=== PATIENT | male | born 1955 | race Caucasian/White ===

== ENCOUNTER 2017-01-24 14:01 | Emergency (ER) | payer OTHER ==
[2017-01-24 14:31] VITALS: RESP 18
[2017-01-24] MEDS ORDERED: ORPHENADRINE 30 MG/ML 2 ML VIAL IM STA (15:28)
[2017-01-24] MEDS ORDERED: KETOROLAC 30 MG/ML 1 ML VIAL IM STA (15:28)
--- NOTE | 2017-01-24 15:56 | XR ---
EXAMINATION TYPE: XR lumbar spine 2 or 3V DATE OF EXAM: 01/24/2017 3:35 PM COMPARISON: NONE HISTORY: Low back pain TECHNIQUE: 3 view lumbar spine FINDINGS: There 5 lumbar-type vertebral bodies. Pedicles are intact. Degenerative disc changes are pr esent L3-4 L4-5. Spondylosis is present. T12 ribs are rudimentary. A 1.0 cm calcification overlies in ferior pole left kidney. Posterior disc space narrowing is present L3-4 and mild diffuse disc space narrowing is present L2-3. Vertebral body heights are preserved. IMPRESSION: 1. Degenerative disc changes L3-4 L2-3. 2. Mild spondylosis.
--- NOTE | 2017-01-24 15:59 | ED ---
General Adult HPI - General Chief complaint: Back Pain/Injury Stated complaint: Back pain Time Seen by Provider: 01/24/17 15:11 Source: patient, RN notes reviewed Mode of arrival: ambulatory - History of Present Illness Initial comments: Patient is a 61-year-old to complaint of lower back pain for approximately one week. Patient reports that the pain is worse with walking and standing. He states that the pain doesn't radiate down his legs. He denies any radiation towards his abdomen. Patient reports that the pain will make him lean to one side. He states the pain is mainly over the left sided lower back however occasionally will go to the right. Patient states that he also has a history of high blood pressure but does not take any medications at this time she didn' t see primary care provider. Patient denies any chest pain or shortness of breath. Her port that he has chronic lower leg swelling with to take a water pill for. He reports that he is out of his medications. - Related Data Home Medications Medication Instructions Recorded Confirmed Aspirin 81 mg PO DAILY 10/02/14 01/24/17 Furosemide [Lasix] 40 mg PO DAILY 01/24/17 01/24/17 amLODIPine [Norvasc] 10 mg PO DAILY 01/24/17 01/24/17 Previous Rx's Medication Instructions Recorded Cyclobenzaprine [Flexeril] 10 mg PO TID #20 tab 01/24/17 Furosemide [Lasix] 40 mg PO DAILY #30 tablet 01/24/17 HYDROcodone/APAP 5-325MG [Hurley 1 tab PO Q6HR PRN #12 tab 01/24/17 5-325] amLODIPine [Norvasc] 10 mg PO DAILY #30 tablet 01/24/17 Allergies Allergy/AdvReac Type Severity Reaction Status Date / Time No Known Allergies Allergy Verified 01/24/17 15:45 Review of Systems ROS Statement: Those systems with pertinent positive or pertinent negative responses have been documented in the HPI. ROS Other: All systems not noted in ROS Statement are negative. Past Medical History Past Medical History: Hypertension History of Any Multi-Drug Resistant Organisms: None Reported Past Surgical History: Hernia Repair Past Psychological History: No Psychological Hx Reported Smoking Status: Never smoker Past Alcohol Use History: None Reported Past Drug Use History: None Reported General Exam - General Exam Comments Initial Comments: Pleasant 61-year-old male. No distress. General appearance: alert, in no apparent distress Head exam: Present: atraumatic, normocephalic, normal inspection Eye exam: Present: normal appearance, PERRL, EOMI. Absent: scleral icterus, conjunctival injection, periorbital swelling ENT exam: Present: normal exam, mucous membranes moist Neck exam: Present: normal inspection. Absent: tenderness, meningismus, lymphadenopathy Respiratory exam: Present: normal lung sounds bilaterally. Absent: respiratory distress, wheezes, rales, rhonchi, stridor Cardiovascular Exam: Present: regular rate, normal rhythm, normal heart sounds. Absent: systolic murmur, diastolic murmur, rubs, gallop, clicks GI/Abdominal exam: Present: soft, normal bowel sounds. Absent: distended, tenderness, guarding, rebound, rigid Extremities exam: Present: normal inspection, full ROM, normal capillary refill. Absent: tenderness, pedal edema, joint swelling, calf tenderness Back exam: Present: normal inspection, muscle spasm, paraspinal tenderness. Absent: full ROM (Patient has limited lumbar flexion and extension due to pain. Patient has muscle spasms over the left lumbar paraspinal area.), CVA tenderness (R), CVA tenderness (L), vertebral tenderness, rash noted Neurological exam: Present: alert, oriented X3, CN II-XII intact Psychiatric exam: Present: normal affect, normal mood Skin exam: Present: warm, dry, intact, normal color. Absent: rash Course Vital Signs 01/24/17 14:26 Temperature 98.6 F Pulse Rate 100 Respiratory 18 Rate Blood Pressure 173/106 O2 Sat by Pulse 96 Oximetry Medical Decision Making - Medical Decision Making Patient is a pleasant 61-year-old male with chief complaint of lower back pain for approximately one week. Patient also has a history of hypertension but is out of this medication. Patient reports he takes a water pill and other medications for this. Patient states the pain is worse with movement. Lumbar spine x-rays obtained. Patient given Toradol and Norflex. Patient will be given a refill for his blood pressure medications as well as Norflex and Hurley for pain. Discussed needs follow-up with a primary care provider in insurance packet was provided for the patient. Patient understands treatment plan will comply. Return parameters were discussed. Disposition Clinical Impression: Lower back pain, Hypertension Disposition: HOME SELF-CARE Condition: Good Instructions: Acute Low Back Pain (ED) Additional Instructions: Patient advised to rest, take blood pressure medication as prescribed. Follow- up with her primary care provider. Patient also instructed to take the pain medications as prescribed as well. Return to the emergency department if any alarming signs or symptoms occur. Prescriptions: Cyclobenzaprine [Flexeril] 10 mg PO TID #20 tab Furosemide [Lasix] 40 mg PO DAILY #30 tablet HYDROcodone/APAP 5-325MG [Hurley 5-325] 1 tab PO Q6HR PRN #12 tab PRN Reason: Pain amLODIPine [Norvasc] 10 mg PO DAILY #30 tablet Referrals: Dinorah Tavarez DO [Primary Care Provider] - 1-2 days Time of Disposition: 15:55
[2017-01-24 16:09] VITALS: BP 164/89; PULSE 94; TEMP 98.1
== END 2017-01-24 16:09 | disposition home or self-care (01) ==
LOC: EC 14:01
DX: M54.5 Low back pain (principal); I10 Essential (primary) hypertension; Z79.82 Long term (current) use of aspirin; Z79.899 Other long term (current) drug therapy
CPT/HCPCS: 99283; 96372 ×2; 72100; J2360; J1885

== ENCOUNTER 2017-08-09 10:38 | Day surgery (SDC) | payer OTHER ==
[2017-08-03 14:00] VITALS: BMI 40.4
[~2017-08-09 10:38] MED LIST: ALPRAZolam 0.25 MG TAB PO PRN; ALPRAZolam 0.5 MG TAB PO PRN; ASPIRIN 325 MG TAB PO STA; ATORVASTATIN 80 MG TAB PO STA; NITROGLYCERIN SL TABS 0.4 MG TAB SUBLINGUAL PRN; SODIUM CHLORIDE 0.9% 1,000 ML in EMPTY BAG 1 BAG IV ONE
[2017-08-09] MEDS ORDERED: SODIUM CHLORIDE 0.9% 1,000 ML IV ONE (11:27)
[2017-08-09 11:48] LABS: Glucose,Whole Blood 131 mg/dL (75-99)
[2017-08-09] MEDS ORDERED: MIDAZOLAM 2 MG/2 ML VIAL IV ONE (12:00)
[2017-08-09] MEDS ORDERED: fentaNYL (PF) 50 MCG/ML 2 ML AMP IV ONE (12:00)
[2017-08-09] MEDS ORDERED: MIDAZOLAM 2 MG/2 ML VIAL ONE (12:02)
[2017-08-09] MEDS ORDERED: fentaNYL (PF) 50 MCG/ML 2 ML AMP ONE (12:03)
[2017-08-09] MEDS ORDERED: LIDOCAINE 2% INJ 20 MG/ML SQ ONE (12:05)
[2017-08-09] MEDS ORDERED: IOHEXOL 350 MG/ML 125ML BOTTLE INJ ONE (12:24)
[2017-08-09] MEDS ORDERED: RX INFO: IV CONTRAST WAS GIVEN 1 EACH MISC MISCELLANE PRN (13:04)
[2017-08-09] MEDS ORDERED: HYDROcodone/APAP 5-325MG 1 EACH TAB PO PRN (13:04)
[2017-08-09] MEDS ORDERED: SODIUM CHLORIDE 0.9% 1,000 ML IV SCH (13:15)
--- NOTE | 2017-08-09 14:10 | CC ---
CARDIAC CATHETERIZATION REPORT Mr. Matias is a 62-year-old gentleman who was evaluated by Dr. Gaming. Patient has a multiple risk factors with chest pain. The patient's stress test was inconclusive to diagnosis ischemia. In view of recurrent chest pain in spite of the medical treatment, the patient was advised diagnostic cardiac catheterization to rule out significant coronary artery disease. PROCEDURE: The right groin was prepped and draped in the usual manner and the skin was infiltrated with 2% Xylocaine. The right femoral artery was entered using Seldinger technique and a #6-Bulgarian sheath was placed in. Selective coronary angiography was then performed in multiple projections and the left ventricular pressures were obtained. Patient tolerated the procedure well. Sheath was removed and good hemostasis was achieved with manual compression. Total sedation time was 20 minutes. HEMODYNAMICS: Left ventricular end-diastolic pressure is 24-26 mmHg prior to angiography. No gradient is noted across the aortic valve. SELECTIVE CORONARY ANGIOGRAPHY: Left main coronary artery is normal and patent. LAD is a good caliber blood vessel and gives rise to a good-sized diagonal branch. LAD and its branches are normal. Circumflex coronary artery is a good caliber blood vessel and gives rise to a good size obtuse marginal branch and the PLV branches. Circumflex coronary artery and its branches are normal. Right coronary artery is a normal caliber blood vessel, and gives rise to a small size PDA and a good size PLV branch. The right coronary artery and its branches are normal. FINAL IMPRESSION: This study reveals normal coronary arteries. Left ventricular end-diastolic pressure is elevated. RECOMMENDATIONS: Maximum medical therapy and risk factor modification. MMODL / IJN: [id number] /
[2017-08-09] MEDS ORDERED: ACETAMINOPHEN TAB 325 MG TAB PO PRN (18:17)
[2017-08-09 19:34] VITALS: PULSE 83; RESP 16; TEMP 97.9
[2017-08-09 19:36] VITALS: BP 121/69
== END 2017-08-09 20:03 | disposition home or self-care (01) ==
LOC: CATHCVL 10:38 → 3OBS 12:22 → CATHCVL 20:03
PROVIDERS: ATTEND Internal Medicine Cardiovascular Disease
DX: R07.89 Other chest pain (principal); R06.02 Shortness of breath; I10 Essential (primary) hypertension; E78.89 Other lipoprotein metabolism disorders; E11.9 Type 2 diabetes mellitus without complications; E78.5 Hyperlipidemia, unspecified; Z79.84 Long term (current) use of oral hypoglycemic drugs; Z79.899 Other long term (current) drug therapy; Z82.49 Family history of ischemic heart disease and other diseases of the circulatory system
CPT/HCPCS: 93458; C1894; C1769; J2001; J2250; J3010; Q9967

== ENCOUNTER 2017-10-20 16:30 | Emergency (ER) | payer OTHER ==
[2017-10-20 16:56] VITALS: BP 161/83; PULSE 92; TEMP 98.7
--- NOTE | 2017-10-20 17:17 | ED ---
General Adult HPI - General Chief complaint: Upper Respiratory Infection Stated complaint: Chest Congestion Time Seen by Provider: 10/20/17 17:12 Source: patient, RN notes reviewed Mode of arrival: ambulatory Limitations: no limitations - History of Present Illness Initial comments: patient is a 62-year-old male who presents emergency room today with a chief complaint of cough congestion over the last week. Patient does admit to some sputum production. He states worse in the morning and at night. Patient does admit that it started with sinus infection approximately week ago. States feels like it moved down into his chest. He denies any other complaints or symptoms. Patient denies any recent fever, chills, shortness of breath, chest pain, back pain, abdominal pain, nausea or vomiting, numbness or tingling, headaches or visual changes, or any other complaints. - Related Data Home Medications Medication Instructions Recorded Confirmed Aspirin 162 mg PO DAILY 10/02/14 08/09/17 Atorvastatin [Lipitor] 40 mg PO DAILY 08/03/17 08/09/17 Levothyroxine Sodium [Levoxyl] 50 mcg PO DAILY 08/03/17 08/09/17 Losartan Potassium 100 mg PO DAILY 08/03/17 08/09/17 Triamterene/Hydrochlorothiazid 1 each PO DAILY 08/03/17 08/09/17 [Triamterene-Hctz 37.5-25 mg Tb] amLODIPine BESYLATE [Norvasc] 10 mg PO DAILY 08/03/17 08/09/17 metFORMIN HCL [Glucophage] 500 mg PO BID 08/03/17 08/09/17 Metoprolol Tartrate [Lopressor] 25 mg PO BID 08/09/17 08/09/17 Previous Rx's Medication Instructions Recorded Azithromycin [Zithromax Z-pack] 0 mg PO DIRECTED #6 tab 10/20/17 Allergies Allergy/AdvReac Type Severity Reaction Status Date / Time No Known Allergies Allergy Verified 10/20/17 16:56 Review of Systems ROS Statement: Those systems with pertinent positive or pertinent negative responses have been documented in the HPI. ROS Other: All systems not noted in ROS Statement are negative. Past Medical History Past Medical History: Chest Pain / Angina, Hyperlipidemia, Hypertension, Sleep Apnea/CPAP/BIPAP, Thyroid Disorder Additional Past Medical History / Comment(s): pt states prediabetic, is awaiting machine for sleep apnea History of Any Multi-Drug Resistant Organisms: None Reported Past Surgical History: Hernia Repair Additional Past Surgical History / Comment(s): surgery for umbilical and inguinal hernia, left pinky surgery, surgery for "swollen testicle" Past Anesthesia/Blood Transfusion Reactions: No Reported Reaction Past Psychological History: Anxiety Smoking Status: Never smoker Past Alcohol Use History: None Reported Past Drug Use History: None Reported - Past Family History Mother Family Medical History: Cancer Additional Family Medical History / Comment(s): "throat cancer" Father Family Medical History: Myocardial Infarction ([place]) Additional Family Medical History / Comment(s): age 66 " of massive heart attack" Brother(s) Family Medical History: Myocardial Infarction ([place]) Sister(s) Family Medical History: Cancer, Myocardial Infarction ([place]) Additional Family Medical History / Comment(s): "throat cancer" General Exam - General Exam Comments Initial Comments: General: The patient is awake and alert, in no distress, and does not appear acutely ill. Eye: Pupils are equal, round and reactive to light, extra-ocular movements are intact. No nystagmus. There is normal conjunctiva bilaterally. No signs of icterus. Ears, nose, mouth and throat: There are moist mucous membranes and no oral lesions. Neck: The neck is supple, there is no tenderness or JVD. Cardiovascular: There is a regular rate and rhythm. No murmur, rub or gallop is appreciated. Respiratory: Lungs are clear to auscultation, respirations are non-labored, breath sounds are equal. No wheezes, stridor, rales, or rhonchi. Musculoskeletal: Normal ROM, no tenderness. Strength 5/5. Sensation intact. Pulses equal bilaterally 2+. Neurological: A&O x 3. CN II-XII intact, There are no obvious motor or sensory deficits. Coordination appears grossly intact. Speech is normal. Skin: Skin is warm and dry and no rashes or lesions are noted. Psychiatric: Cooperative, appropriate mood & affect, normal judgment. Limitations: no limitations Course Vital Signs 10/20/17 16:53 Temperature 98.7 F Pulse Rate 92 Respiratory 17 Rate Blood Pressure 161/83 O2 Sat by Pulse 98 Oximetry Medical Decision Making - Medical Decision Making patient's x-ray reviewed and is negative for any sign of pneumonia. Patient will be treated for bronchitis placed on a Z-Anatoly advised follow-up family doctor over the next 2 days. Advised return symptoms increase worsen. Disposition Clinical Impression: Acute bronchitis Disposition: HOME SELF-CARE Condition: Good Instructions: Acute Bronchitis (ED) Additional Instructions: Please use medication as discussed. Please follow-up with family doctor in the next 2 days of symptoms have not improved. Please return to emergency room if the symptoms increase or worsen or for any other concerns. Prescriptions: Azithromycin [Zithromax Z-pack] 0 mg PO DIRECTED #6 tab Referrals: Dinorah Tavarez DO [Primary Care Provider] - 1-2 days Time of Disposition: 17:50
--- NOTE | 2017-10-20 17:37 | XR ---
EXAMINATION TYPE: XR chest 2V DATE OF EXAM: 10/20/2017 COMPARISON: 07/25/2012 HISTORY: Cough and congestion TECHNIQUE: Frontal and lateral views of the chest are obtained. FINDINGS: Heart and mediastinum are normal. Lungs are clear. Costophrenic angles are clear. There is mild spurring in the thoracic spine. IMPRESSION: No active cardiopulmonary disease. No change.
[2017-10-20 18:07] VITALS: RESP 16
== END 2017-10-20 18:06 | disposition home or self-care (01) ==
LOC: EC 16:30
DX: J20.9 Acute bronchitis, unspecified (principal); E78.5 Hyperlipidemia, unspecified; I10 Essential (primary) hypertension; E07.9 Disorder of thyroid, unspecified; G47.30 Sleep apnea, unspecified; Z99.89 Dependence on other enabling machines and devices; F41.9 Anxiety disorder, unspecified; Z79.82 Long term (current) use of aspirin; Z79.84 Long term (current) use of oral hypoglycemic drugs; Z79.899 Other long term (current) drug therapy
CPT/HCPCS: 71046; 99283

== ENCOUNTER 2020-03-22 16:17 | Inpatient (IN) | payer MEDICARE, OTHER ==
--- NOTE | 2020-03-22 16:30 | ED ---
Neck Injury/Pain HPI - General Chief Complaint: Neck Pain/Injury Stated Complaint: chest pain Time Seen by Provider: 03/22/20 16:29 Mode of arrival: wheelchair Limitations: no limitations - History of Present Illness Initial Comments: Patient is a 64-year-old male with history of diabetes, hyperlipidemia, hypertension presenting to the emergency department with a chief complaint of neck pain and chest tightness. States about 2 days ago he felt some crepitus- like symptoms in his neck. States he went to the chiropractor who adjusted his neck but his symptoms did not resolve. States the following day he went to his primary care for complaining of right-sided neck pain that feels like a pressure in the neck. States his primary care gave him an order for a carotid ultrasound with the potential CT follow-up. Patient states today in the morning he has noticed some chest tightness with a slight shortness of breath on exertion. States it lasted for about 5-10 minutes and resolved. States she went to do some work in the yard and the symptoms returned again. States the symptoms since resolved. States she has not taken any of his morning medications. States he has a strong family history of early cardiac related disease. Denies one-sided weakness or paresthesias. Denies visual disturbances. - Related Data Home Medications Medication Instructions Recorded Confirmed Aspirin 81 mg PO DAILY 10/02/14 01/27/18 Atorvastatin [Lipitor] 40 mg PO DAILY 08/03/17 01/27/18 Losartan Potassium 100 mg PO DAILY 08/03/17 01/27/18 Triamterene/Hydrochlorothiazid 1 tab PO DAILY 08/03/17 01/27/18 [Triamterene-Hctz 37.5-25 mg Tb] amLODIPine BESYLATE [Norvasc] 10 mg PO DAILY 08/03/17 01/27/18 metFORMIN HCL [Glucophage] 500 mg PO BID 08/03/17 01/27/18 Levothyroxine Sodium [Synthroid] 75 mcg PO DAILY 01/27/18 01/27/18 Metoprolol Succinate [Toprol Xl] 50 mg PO DAILY 01/27/18 01/27/18 Previous Rx's Medication Instructions Recorded Ibuprofen [Motrin] 600 mg PO Q8HR PRN #24 tab 01/27/18 Levofloxacin [Levaquin] 500 mg PO DAILY #7 tab 01/27/18 Tamsulosin [Flomax] 0.4 mg PO DAILY #30 cap 01/27/18 Allergies Allergy/AdvReac Type Severity Reaction Status Date / Time No Known Allergies Allergy Verified 03/22/20 16:28 Review of Systems ROS Statement: Those systems with pertinent positive or pertinent negative responses have been documented in the HPI. ROS Other: All systems not noted in ROS Statement are negative. Past Medical History Past Medical History: Chest Pain / Angina, Hyperlipidemia, Hypertension, Sleep Apnea/CPAP/BIPAP, Thyroid Disorder Additional Past Medical History / Comment(s): pt states prediabetic, is awaiting machine for sleep apnea History of Any Multi-Drug Resistant Organisms: None Reported Past Surgical History: Hernia Repair Additional Past Surgical History / Comment(s): surgery for umbilical and inguinal hernia, left pinky surgery, surgery for "swollen testicle" Past Anesthesia/Blood Transfusion Reactions: No Reported Reaction Past Psychological History: Anxiety Smoking Status: Never smoker Past Alcohol Use History: None Reported Past Drug Use History: None Reported - Past Family History Mother Family Medical History: Cancer Additional Family Medical History / Comment(s): "throat cancer" Father Family Medical History: Myocardial Infarction ([place]) Additional Family Medical History / Comment(s): age 66 " of massive heart attack" Brother(s) Family Medical History: Myocardial Infarction ([place]) Sister(s) Family Medical History: Cancer, Myocardial Infarction ([place]) Additional Family Medical History / Comment(s): "throat cancer" General Exam Limitations: no limitations General appearance: alert, in no apparent distress, obese Head exam: Present: atraumatic, normocephalic, normal inspection Eye exam: Present: normal appearance, PERRL, EOMI Pupils: Present: normal accommodation ENT exam: Present: normal exam, normal oropharynx, mucous membranes moist, TM's normal bilaterally (No signs of otitis media.), normal external ear exam Neck exam: Present: normal inspection, tenderness (No midcervical tenderness. Crepitus noted with left and right rotation. Tenderness along the right trapezius.), full ROM. Absent: lymphadenopathy Respiratory exam: Present: normal lung sounds bilaterally. Absent: respiratory distress, wheezes Cardiovascular Exam: Present: regular rate, normal rhythm, normal heart sounds Extremities exam: Present: normal inspection, full ROM Back exam: Present: normal inspection, full ROM Neurological exam: Present: alert, oriented X3 Psychiatric exam: Present: normal affect, normal mood Skin exam: Present: warm, dry, intact, normal color Course Vital Signs 03/22/20 16:22 Temperature 98.3 F Pulse Rate 105 H Respiratory 18 Rate Blood Pressure 173/95 O2 Sat by Pulse 99 Oximetry Medical Decision Making - Medical Decision Making Patient is 64-year-old male with history of hypertension, hypercholesterolemia, diabetes presenting to the emergency department with a chief complaint of neck pain and chest pressure. On exam she does appear to have limited range of motion with left or right rotation due to pain on the right side of the neck. No signs of mastoiditis. Ear examination is unremarkable. Patient is scheduled to have a carotid ultrasound over the next few days. Doesn't have any headaches at this time. EKG shows sinus rhythm with no ST or T-wave changes. Patient was given aspirin and nitro in the ED. Chest x-ray was unremarkable. Initial troponins are negative. Patient did not take his morning medication. Patient has a heart score 5. Patient will be admitted for observation. Case discussed with . Admitting physician is . Cardiology on consult - Lab Data Result diagrams: 03/22/20 15:03 03/22/20 15:03 Lab Results 03/22/20 03/22/20 03/22/20 Range/Units 15:03 15:03 15:03 WBC 10.5 (3.8-10.6) k/uL RBC 5.14 (4.30-5.90) m/uL Hgb 14.8 (13.0-17.5) gm/dL Hct 45.3 (39.0-53.0) % MCV 88.1 (80.0-100.0) fL MCH 28.8 (25.0-35.0) pg MCHC 32.7 (31.0-37.0) g/dL RDW 14.0 (11.5-15.5) % Plt Count 288 (150-450) k/uL Neutrophils % 81 % Lymphocytes % 14 % Monocytes % 4 % Eosinophils % 0 % Basophils % 1 % Neutrophils # 8.4 H (1.3-7.7) k/uL Lymphocytes # 1.4 (1.0-4.8) k/uL Monocytes # 0.4 (0-1.0) k/uL Eosinophils # 0.0 (0-0.7) k/uL Basophils # 0.1 (0-0.2) k/uL PT 10.0 (9.0-12.0) sec INR 1.0 (<1.2) APTT 23.6 (22.0-30.0) sec Sodium 136 L (137-145) mmol/L Potassium 4.6 (3.5-5.1) mmol/L Chloride 101 (98-107) mmol/L Carbon Dioxide 25 (22-30) mmol/L Anion Gap 10 mmol/L BUN 18 (9-20) mg/dL Creatinine 0.91 (0.66-1.25) mg/dL Est GFR (CKD-EPI)AfAm >90 (>60 ml/min/1.73 sqM) Est GFR (CKD-EPI)NonAf 89 (>60 ml/min/1.73 sqM) Glucose 230 H (74-99) mg/dL Calcium 9.9 (8.4-10.2) mg/dL Magnesium 1.9 (1.6-2.3) mg/dL Total Bilirubin 0.8 (0.2-1.3) mg/dL AST 41 (17-59) U/L ALT 68 H (4-49) U/L Alkaline Phosphatase 140 H (38-126) U/L Troponin I (0.000-0.034) ng/mL Total Protein 7.3 (6.3-8.2) g/dL Albumin 4.4 (3.5-5.0) g/dL 03/22/20 Range/Units 15:03 WBC (3.8-10.6) k/uL RBC (4.30-5.90) m/uL Hgb (13.0-17.5) gm/dL Hct (39.0-53.0) % MCV (80.0-100.0) fL MCH (25.0-35.0) pg MCHC (31.0-37.0) g/dL RDW (11.5-15.5) % Plt Count (150-450) k/uL Neutrophils % % Lymphocytes % % Monocytes % % Eosinophils % % Basophils % % Neutrophils # (1.3-7.7) k/uL Lymphocytes # (1.0-4.8) k/uL Monocytes # (0-1.0) k/uL Eosinophils # (0-0.7) k/uL Basophils # (0-0.2) k/uL PT (9.0-12.0) sec INR (<1.2) APTT (22.0-30.0) sec Sodium (137-145) mmol/L Potassium (3.5-5.1) mmol/L Chloride (98-107) mmol/L Carbon Dioxide (22-30) mmol/L Anion Gap mmol/L BUN (9-20) mg/dL Creatinine (0.66-1.25) mg/dL Est GFR (CKD-EPI)AfAm (>60 ml/min/1.73 sqM) Est GFR (CKD-EPI)NonAf (>60 ml/min/1.73 sqM) Glucose (74-99) mg/dL Calcium (8.4-10.2) mg/dL Magnesium (1.6-2.3) mg/dL Total Bilirubin (0.2-1.3) mg/dL AST (17-59) U/L ALT (4-49) U/L Alkaline Phosphatase (38-126) U/L Troponin I <0.012 (0.000-0.034) ng/mL Total Protein (6.3-8.2) g/dL Albumin (3.5-5.0) g/dL - EKG Data EKG Comments: Sinus rhythm, no ST or T-wave changes. Next, ventricular rate 98, MO 156, QRS 92, QTC 434. Disposition Clinical Impression: Neck pain on right side, Chest pressure Disposition: ADMITTED IP TO THIS HOSP Condition: Stable Additional Instructions: Patient will be admitted Is patient prescribed a controlled substance at d/c from ED?: No Referrals: Dinorah aTvarez DO [Primary Care Provider] - 1-2 days Time of Disposition: 18:33
[2020-03-22] MEDS ORDERED: NITROGLYCERIN OINT 1 INCH/GM PACKET TOPICAL STA (16:48)
[2020-03-22] MEDS ORDERED: ASPIRIN 81 MG PO STA (16:48)
[2020-03-22 17:28] LABS: Basophils # (A) 0.1 k/uL (0-0.2); Basophils % (A) 1 %; Eosinophils % (A) 0 %; HCT 45.3 % (39.0-53.0); HGB 14.8 gm/dL (13.0-17.5); Lymphocytes # (A) 1.4 k/uL (1.0-4.8); Lymphocytes % (A) 14 %; MCH 28.8 pg (25.0-35.0); MCHC 32.7 g/dL (31.0-37.0); MCV 88.1 fL (80.0-100.0); Mean Platelet Volume 6.7; Monocytes # (A) 0.4 k/uL (0-1.0); Monocytes % (A) 4 %; Neutrophils # (A) 8.4 k/uL (1.3-7.7); Neutrophils % (A) 81 %; Platelet Count 288 k/uL (150-450); RBC 5.14 m/uL (4.30-5.90); WBC 10.5 k/uL (3.8-10.6)
--- NOTE | 2020-03-22 17:44 | XR ---
EXAMINATION TYPE: XR chest 2V DATE OF EXAM: 03/22/2020 COMPARISON: 10/20/2017 HISTORY: Cough and congestion TECHNIQUE: 2 views FINDINGS: Heart is normal. Lungs are clear of infiltrate. There is no heart failure. There are chest leads. Costophrenic angles are clear. IMPRESSION: No active cardiopulmonary disease. Normal heart. No change.
[2020-03-22 17:45] LABS: ALT 68 U/L (4-49); AST 41 U/L (17-59); African American GFR (CKD) >90 (>60 ml/min/1.73 sqM); Albumin 4.4 g/dL (3.5-5.0); Alkaline Phosphatase 140 U/L (38-126); Anion Gap 10 mmol/L; Blood Urea Nitrogen 18 mg/dL (9-20); Calcium 9.9 mg/dL (8.4-10.2); Carbon Dioxide 25 mmol/L (22-30); Chloride 101 mmol/L (98-107); Glucose 230 mg/dL (74-99); Magnesium 1.9 mg/dL (1.6-2.3); Non-African American GFR(CKD) 89 (>60 ml/min/1.73 sqM); Potassium 4.6 mmol/L (3.5-5.1); Sodium 136 mmol/L (137-145); Total Bilirubin 0.8 mg/dL (0.2-1.3); Total Protein 7.3 g/dL (6.3-8.2)
[2020-03-22 17:49] LABS: Partial Thromboplastin Time 23.6 sec (22.0-30.0)
[2020-03-22] MEDS ORDERED: NITROGLYCERIN SL TABS 0.4 MG TAB SUBLINGUAL PRN (18:25)
[2020-03-22] MEDS ORDERED: HYDROcodone/APAP 5-325MG 1 EACH TAB PO PRN (21:30)
[2020-03-22] MEDS ORDERED: TEMAZEPAM 15 MG CAP PO PRN (21:30)
[2020-03-22] MEDS ORDERED: ALPRAZolam 0.25 MG TAB PO PRN (21:30)
--- NOTE | 2020-03-22 22:10 | US ---
EXAMINATION TYPE: US carotid duplex BILAT DATE OF EXAM: 03/22/2020 COMPARISON: NONE CLINICAL HISTORY: tia. EXAM MEASUREMENTS: RIGHT: Peak Systolic Velocity (PSV) cm/sec ----- Right CCA: 86.7 ----- Right ICA: 91.1 ----- Right ECA: 75.7 ICA/CCA ratio: 1.1 RIGHT: End Diastole cm/sec ----- Right CCA: 16.4 ----- Right ICA: 34.0 ----- Right ECA: 5.4 LEFT: Peak Systolic Velocity (PSV) cm/sec ----- Left CCA: 81.3 ----- Left ICA: 83.5 ----- Left ECA: 103.4 ICA/CCA ratio: 1.0 LEFT: End Diastole cm/sec ----- Left CCA: 17.5 ----- Left ICA: 18.6 ----- Left ECA: 7.6 VERTEBRALS (direction of flow): Right Vertebral: Antegrade Left Vertebral: Antegrade Rhythm: Normal No significant stenosis seen. No elevated velocities. Minimal plaque noted. IMPRESSION: There is antegrade flow in the vertebral arteries. The images and measurements suggest close to 50% s tenosis in the distal left internal carotid artery with fusiform narrowing. There is less than 15% na rrowing of the right internal carotid artery. Criteria for Assigning % of Stenosis / Diameter reduction (Estimation based on the indirect measurements of the internal carotid artery velocities (ICA PSV). 1. Normal (no stenosis)=ICA PSV < 125 cm/s: ratio < 2.0: ICA EDV<40 cm/s. 2. Less than 50% stenosis=ICA PSV < 125 cm/s: ratio < 2.0: ICA EDV<40 cm/s. 3. 50 to 69% stenosis=ICA PSV of 125 to 230 cm/s: ration 2.0 ? 4.0: ICA EDV 40-100 cm/s. 4. Greater than 70% stenosis to near occlusion= ICA PSV > 230 cm/s: ratio > 4.0: ICA EDV > 100 cm/s. 5. Near occlusion= ICA PSV velocities may be low or undetectable: variable ratio and ICA EDV. 6. Total occlusion=unable to detect flow.
--- NOTE | 2020-03-22 22:27 | CT ---
EXAMINATION TYPE: CT brain cspine wo con DATE OF EXAM: 03/22/2020 COMPARISON: HISTORY: Right sided head and neck pain. CT DLP: 1649.8 mGycm Automated exposure control for dose reduction was used. Ventricles have normal size. There is no mass effect nor midline shift. There is no sign of intracran ial hemorrhage. There is mild cerebral atrophy. Calvarium is intact. The skull base is intact. Cervical vertebra have normal spacing and alignment. There is anterior mild spurring at C5-6. Facet j oints are intact. I see no bony destructive process. Temporal bones appear normal. IMPRESSION: Negative CT scan cervical spine. Negative CT scan of the brain.
--- NOTE | 2020-03-22 23:39 | HP ---
HISTORY AND PHYSICAL DATE OF SERVICE: 03/22/2020 CHIEF COMPLAINT: Chest pain as well as neck pain. HISTORY OF PRESENT ILLNESS: This 64-year-old gentleman with a past medical history of multiple medical problems including chest pain, history of hypertension, hyperlipidemia, sleep apnea, history of hernia repair being followed by Dr. Dinorah Tavarez, has been having some neck pain initially the early part of the week and the patient went to a chiropractor where neck manipulation was done and during the manipulation, patient felt sharp shooting pain and a crack on the right side of the neck. The patient went home but subsequently patient was not noted to have a burning sensation and pain in the right side of the jaw and right side of the face and subsequently the pain was also radiating upwards to the vertex also. However, the next day the patient developed chest pain which was heavy in character, squeezing in character and the patient came to [facility] and was admitted for evaluation and treatment. Initial troponins are negative. There is no history any fever or rigors. No headache, loss of consciousness, seizures at this time. The patient is not feeling well with some slight dizziness and other symptoms according to him for the last couple of days. PAST MEDICAL HISTORY: History of hypertension, hyperlipidemia, sleep apnea, hernia repair. MEDICATIONS: 1. Metformin. 2. Glucophage XR 500 mg p.o. b.i.d. 3. Norvasc 10 mg p.o. daily. 4. Triamterene hydrochlorothiazide 1 tablet p.o. daily. 5. Toprol-XL 50 mg p.o. daily. 6. Losartan 100 mg p.o. daily. 7. Synthroid 75 mcg p.o. daily. 8. Lipitor 40 mg p.o. daily. 9. Aspirin 81 mg p.o. daily. ALLERGIES: None. FAMILY HISTORY: History of throat cancer in the family. SOCIAL HISTORY: No history of smoking. No history of alcohol intake. REVIEW OF SYSTEMS: ENT No history of diminished hearing or vision. CARDIOVASCULAR As mentioned earlier. RESPIRATORY As mentioned earlier. GI No nausea, vomiting, or diarrhea. No dysuria or hematuria. NERVOUS No numbness or weakness. ALLERGY/IMMUNOLOGY No asthma or hayfever. MUSCULOSKELETAL As mentioned earlier. HEMATOLOGY/ONCOLOGY Negative. ENDOCRINE As mentioned earlier. CONSTITUTIONAL As mentioned earlier. DERMATOLOGY Negative. RHEUMATOLOGY Negative, PSYCHIATRY As mentioned earlier. PHYSICAL EXAM: Patient is alert, oriented x3. Pulse 90, blood pressure 120/80, respiration 20, temperature 97.9, pulse ox 96% on room air HEENT: Conjunctivae normal. Oral mucosa moist. NECK: No jugular venous distention. No lymph node enlargement. CARDIOVASCULAR: S1, S2. RESPIRATORY: Diminished breath sounds at the bases. No rhonchi, no crackles. ABDOMEN: Soft, nontender. No mass palpable. LEGS: No edema, no swelling. NERVOUS SYSTEM: Higher functions mentioned earlier. Moves all four limbs. No focal motor or sensory deficits. No signs of cerebellar dysfunction. Gait is normal. LYMPHATICS: No lymph node in neck or axilla. SKIN: No rash. JOINTS: No active deforming arthropathy. LABS: CBC within normal limits. Sodium 130, potassium 4.6, glucose 230, and ALT 16. Alkaline phosphatase 140. ASSESSMENT: 1. Chest pain, possible unstable angina. Rule out myocardial infarction. 2. Right-sided jaw pain, possible cervical degenerative joint disease. 3. Hyponatremia. 4. Increased ALT and alkaline phosphatase. 5. Hypertension. 6. Hyperlipidemia. 7. Sleep apnea. 8. Hypothyroidism. 9. Pre diabetes. 10.History of sleep apnea. 11.History of hernia repair. 12.Anxiety. RECOMMENDATIONS AND DISCUSSION: In this 64-year-old gentleman who presented with multiple complex medical issues, we will monitor the patient closely, continue the current management and symptomatic treatment. I would recommend further troponin testing to rule out myocardial infarction, unstable angina protocol, Cardiology consultation and I would also recommend neurological workup including carotid ultrasound and 2D echo as well. We will continue to monitor. I would also recommend cervical spine x-ray and CT scan of the brain and cervical spine also to complete the workup. Otherwise, overall prognosis guarded because of multiple complex medical issues. Further recommendations to follow. MMODL / IJN: [id number] /
[2020-03-23 03:11] LABS: Basophils # (A) 0.1 k/uL (0-0.2); Basophils % (A) 1 %; Eosinophils # (A) 0.1 k/uL (0-0.7); Eosinophils % (A) 1 %; HCT 41.9 % (39.0-53.0); HGB 14.3 gm/dL (13.0-17.5); Lymphocytes # (A) 2.4 k/uL (1.0-4.8); Lymphocytes % (A) 26 %; MCH 30.5 pg (25.0-35.0); MCV 89.6 fL (80.0-100.0); Mean Platelet Volume 6.8; Monocytes # (A) 0.4 k/uL (0-1.0); Monocytes % (A) 5 %; Neutrophils % (A) 66 %; Platelet Count 246 k/uL (150-450); RBC 4.68 m/uL (4.30-5.90); RDW 14.6 % (11.5-15.5); WBC 9.1 k/uL (3.8-10.6)
[2020-03-23 03:18] LABS: ALT 58 U/L (4-49); AST 33 U/L (17-59); African American GFR (CKD) >90 (>60 ml/min/1.73 sqM); Albumin 3.8 g/dL (3.5-5.0); Alkaline Phosphatase 102 U/L (38-126); Anion Gap 8 mmol/L; Blood Urea Nitrogen 20 mg/dL (9-20); Calcium 9.2 mg/dL (8.4-10.2); Carbon Dioxide 24 mmol/L (22-30); Chloride 103 mmol/L (98-107); Cholesterol 170 mg/dL (<200); Glucose 198 mg/dL (74-99); HDL Cholesterol 37 mg/dL (40-60); LDL Cholesterol,Calculated 93 mg/dL (0-99); Non-African American GFR(CKD) >90 (>60 ml/min/1.73 sqM); Potassium 4.2 mmol/L (3.5-5.1); Sodium 135 mmol/L (137-145); Total Bilirubin 0.6 mg/dL (0.2-1.3); Total Protein 6.5 g/dL (6.3-8.2); Triglycerides 202 mg/dL (<150)
[2020-03-23 04:37] LABS: Glucose,Whole Blood 192 mg/dL (75-99)
[2020-03-23] MEDS: LEVOTHYROXINE 75 MCG TAB PO SCH (06:03)
[2020-03-23] MEDS ORDERED: ASPIRIN 325 MG TAB PO SCH (09:00)
[2020-03-23] MEDS ORDERED: METOPROLOL SUCCINATE (ER) 50 MG TAB.ER.24H PO SCH (09:00)
[2020-03-23] MEDS: INSULIN ASPART (NovoLOG) 100 UNIT/ML VIAL SQ SCH ×4 (09:18→19:41)
[2020-03-23] MEDS: ATORVASTATIN 40 MG TAB PO SCH (09:26)
[2020-03-23] MEDS: PANTOPRAZOLE 40 MG TABLET PO SCH (09:26)
[2020-03-23] MEDS: amLODIPine 10 MG TAB PO SCH (09:26)
[2020-03-23] MEDS: metFORMIN 500 MG TAB PO SCH ×2 (09:26→19:30)
[2020-03-23] MEDS: LOSARTAN 50 MG TAB PO SCH (09:26)
[2020-03-23] MEDS: TRIAMTERENE-HCTZ 37.5-25MG 1 EACH TAB PO SCH (09:27)
--- NOTE | 2020-03-23 09:49 | P.CRDCN ---
History of Present Illness Consult date: 03/23/20 Consult reason: chest pain History of present illness: The patient is a 64-year-old male with past medical history of GERD, hypothyroidism, obesity, sleep apnea, hypertension, hyperlipidemia, and diabetes mellitus, who presented to the hospital for new onset of chest discomfort. The patient states he was experiencing neck pain last week and subsequently went to the chiropractor. His neck was manipulated, which caused him to have dizziness and nausea. Over the next 2 days he had continued neck discomfort which radiated down into his clavicle area. Tuesday morning he was relatively pain- free, when he went outside to plant mayen with his . During that time he developed a heaviness in his chest. He states it was a pressure-like sensation, which did affect his breathing. He states "I felt like a couldn't get enough air." He does have a significant family history of coronary artery disease where his father in his mid 60s and he had a brother pass away in his sleep around the same age. He also has another brother who has multiple coronary stents. EKG shows sinus mechanism without acute ST or T-wave changes. Cardiac enzymes negative 3. Chest x-ray negative for acute cardiopulmonary disease. PAST MEDICAL HISTORY: Hypothyroidism, GERD,obesity, sleep apnea, hypertension, hyperlipidemia, diabetes mellitus, hernia repair REVIEW OF SYSTEMS: No fever or chills. No cough or expectoration. No diaphoresis. Patient denies headache, dizziness, blurred vision, double vision. Patient denies any stomach discomfort. No nausea, vomiting. No hematochezia. No hematemesis. Denies any black stools or blood in his stools. Denies dysuria or hematuria. No muscle weakness or numbness. No current chest discomfort. Positive neck pain. PHYSICAL EXAMINATION: This is a 64-year-old obese male in no apparent distress at the time of my examination. HEENT: Head is atraumatic, normocephalic. Pupils are equal, round. Sclerae anicteric. Conjunctivae are clear. Mucous membranes of the mouth are moist. Neck is supple. There is no jugular venous distention. No carotid bruit is heard. CHEST EXAMINATION: Lungs are clear to auscultation. No chest wall tenderness is noted on palpation or with deep breathing. HEART EXAMINATION: Heart regular rate and rhythm. S1, S2 heard. No murmurs, gallops or rub. ABDOMEN: Soft, nontender. Bowel sounds are heard. No organomegaly noted. EXTREMITIES: 2+ peripheral pulses with no evidence of peripheral edema and no calf tenderness noted. NEUROLOGIC EXAMINATION: Patient is awake, alert and oriented x3. EKG: Sinus mechanism without ST or T wave changes LABORATORY DATA: WBC 9.1, hemoglobin 14.3, hematocrit 41.9, sodium 135, potassiu m 4.2, BUN 20, creatinine 0.82, glucose 198, AST 33, ALT 58, triglycerides 202, LDL 93, HDL 37, troponins less than 0.0123 FINAL ASSESSMENT AND PLAN: #1 chest discomfort #2 hypertension, reasonably well controlled #3 dyslipidemia, on statin therapy #4 diabetes mellitus #5 obesity #6 VAN, which is untreated #7 family history of coronary artery disease PLAN: We will continue the patient's current medication regimen. Patient will undergo dobutamine stress echocardiogram with contrast in the morning. The patient may be discharged for outpatient follow-up and risk factor modification if the testing is within normal limits. Past Medical History Past Medical History: Chest Pain / Angina, Hyperlipidemia, Hypertension, Sleep Apnea/CPAP/BIPAP, Thyroid Disorder Additional Past Medical History / Comment(s): pt states prediabetic, is awaiting machine for sleep apnea History of Any Multi-Drug Resistant Organisms: None Reported Past Surgical History: Hernia Repair Additional Past Surgical History / Comment(s): surgery for umbilical and ingu inal hernia, left pinky surgery, surgery for "swollen testicle" Past Anesthesia/Blood Transfusion Reactions: No Reported Reaction Past Psychological History: Anxiety Smoking Status: Never smoker Past Alcohol Use History: None Reported Past Drug Use History: None Reported - Past Family History Mother Family Medical History: Cancer Additional Family Medical History / Comment(s): "throat cancer" Father Family Medical History: Myocardial Infarction ([place]) Additional Family Medical History / Comment(s): age 66 " of massive heart attack" Brother(s) Family Medical History: Myocardial Infarction ([place]) Sister(s) Family Medical History: Cancer, Myocardial Infarction ([place]) Additional Family Medical History / Comment(s): "throat cancer" Medications and Allergies Home Medications Medication Instructions Recorded Confirmed Type Aspirin 81 mg PO DAILY 10/02/14 03/22/20 History Atorvastatin [Lipitor] 40 mg PO DAILY 08/03/17 03/22/20 History Losartan Potassium 100 mg PO DAILY 08/03/17 03/22/20 History Triamterene/Hydrochlorothiazid 1 tab PO DAILY 08/03/17 03/22/20 History [Triamterene-Hctz 37.5-25 mg Tb] amLODIPine BESYLATE [Norvasc] 10 mg PO DAILY 08/03/17 03/22/20 History Levothyroxine Sodium [Synthroid] 75 mcg PO DAILY 01/27/18 03/22/20 History Metoprolol Succinate [Toprol Xl] 50 mg PO DAILY 01/27/18 03/22/20 History metFORMIN HCL ER [Glucophage Xr] 500 mg PO BID 03/22/20 03/22/20 History Allergies Allergy/AdvReac Type Severity Reaction Status Date / Time No Known Allergies Allergy Verified 03/22/20 19:56 Physical Exam Vitals: Vital Signs Temp Pulse Pulse Resp BP BP Pulse Ox 03/23/20 08:00 97.8 F 91 10 L 145/77 100 03/23/20 04:11 98.2 F 82 16 129/78 97 03/23/20 00:02 97.8 F 95 16 131/83 95 03/22/20 20:00 89 03/22/20 18:53 90 20 125/89 96 03/22/20 18:36 97.9 F 89 16 134/86 95 03/22/20 16:22 98.3 F 105 H 18 173/95 99 Intake and Output 03/22/20 03/23/20 03/23/20 22:59 06:59 14:59 Other: Voiding Method Toilet Toilet Weight 117.934 kg 116.12 kg Results 03/23/20 02:41 03/23/20 02:41 Cardiac Enzymes 03/22/20 03/22/20 03/22/20 Range/Units 15:03 15:03 22:20 AST 41 (17-59) U/L Troponin I <0.012 <0.012 (0.000-0.034) ng/mL 03/23/20 03/23/20 Range/Units 02:41 02:41 AST 33 (17-59) U/L Troponin I <0.012 (0.000-0.034) ng/mL Coagulation 03/22/20 Range/Units 15:03 PT 10.0 (9.0-12.0) sec APTT 23.6 (22.0-30.0) sec Lipids 03/23/20 Range/Units 02:41 Triglycerides 202 H (<150) mg/dL Cholesterol 170 (<200) mg/dL HDL Cholesterol 37 L (40-60) mg/dL CBC 03/22/20 03/23/20 Range/Units 15:03 02:41 WBC 10.5 9.1 (3.8-10.6) k/uL RBC 5.14 4.68 (4.30-5.90) m/uL Hgb 14.8 14.3 (13.0-17.5) gm/dL Hct 45.3 41.9 (39.0-53.0) % Plt Count 288 246 (150-450) k/uL Comprehensive Metabolic Panel 03/22/20 03/23/20 Range/Units 15:03 02:41 Sodium 136 L 135 L (137-145) mmol/L Potassium 4.6 4.2 (3.5-5.1) mmol/L Chloride 101 103 (98-107) mmol/L Carbon Dioxide 25 24 (22-30) mmol/L BUN 18 20 (9-20) mg/dL Creatinine 0.91 0.82 (0.66-1.25) mg/dL Glucose 230 H 198 H (74-99) mg/dL Calcium 9.9 9.2 (8.4-10.2) mg/dL AST 41 33 (17-59) U/L ALT 68 H 58 H (4-49) U/L Alkaline Phosphatase 140 H 102 (38-126) U/L Total Protein 7.3 6.5 (6.3-8.2) g/dL Albumin 4.4 3.8 (3.5-5.0) g/dL Current Medications Generic Name Dose Route Start Last Admin Trade Name Freq PRN Reason Stop Dose Admin Hydrocodone Bitart/Acetaminophen 1 each 03/22/20 21:30 Giltner 5-325 PO Q6HR PRN Pain Alprazolam 0.25 mg 03/22/20 21:30 Xanax PO TID PRN Anxiety Amlodipine Besylate 10 mg 03/23/20 09:00 03/23/20 09:26 Norvasc PO 10 mg DAILY CHAIM Administration Aspirin 81 mg 03/23/20 09:00 Aspirin PO DAILY CHAIM Atorvastatin Calcium 40 mg 03/23/20 09:00 03/23/20 09:26 Lipitor PO 40 mg DAILY CHAIM Administration Dobutamine HCl/Dextrose 500 mg 250 mls @ 34.836 mls/hr 03/24/20 08:00 / IV Solution IV 03/24/20 15:10 .[id number] ONE Protocol 10 MCG/KG/MIN Insulin Aspart 0 unit 03/23/20 07:30 03/23/20 09:18 Novolog SQ Not Given ACHS [facility] Protocol Levothyroxine Sodium 75 mcg 03/23/20 06:30 03/23/20 06:03 Synthroid PO 75 mcg DAILY@0630 CHAIM Administration Losartan Potassium 100 mg 03/23/20 09:00 03/23/20 09:26 Cozaar PO 100 mg DAILY CHAIM Administration Metformin HCl 500 mg 03/23/20 09:00 03/23/20 09:26 Glucophage PO Not Given BID CHAIM Metoprolol Succinate 50 mg 03/23/20 09:00 03/23/20 09:26 Toprol Xl PO Not Given DAILY [facility] Nitroglycerin 0.4 mg 03/22/20 18:25 Nitrostat SUBLINGUAL Q5M PRN Chest Pain Pantoprazole Sodium 40 mg 03/23/20 07:30 03/23/20 09:26 Protonix PO 40 mg [id number] CHAIM Administration Temazepam 15 mg 03/22/20 21:30 Restoril PO HS PRN Insomnia Triamterene/HCTZ 1 each 03/23/20 09:00 03/23/20 09:27 Maxzide-25 PO 1 each DAILY CHAIM Administration Intake and Output 03/22/20 03/23/20 03/23/20 22:59 06:59 14:59 Other: Voiding Method Toilet Toilet Weight 117.934 kg 116.12 kg 03/23/20 02:41 03/23/20 02:41
[2020-03-23 12:09] LABS: Glucose,Whole Blood 222 mg/dL (75-99)
[2020-03-23] MEDS: ASPIRIN 81 MG PO SCH (12:18)
[2020-03-23 16:57] LABS: Glucose,Whole Blood 183 mg/dL (75-99)
[2020-03-23 19:37] LABS: Glucose,Whole Blood 223 mg/dL (75-99)
--- NOTE | 2020-03-23 23:34 | PN ---
PROGRESS NOTE DATE OF SERVICE: 03/23/2020 I am covering for Dr. Tavarez. This 64-year-old gentleman admitted with chest pain, neck pain is being closely followed at this time. Cardiology is recommending a stress test tomorrow. A carotid Doppler showed some stenosis which is not hemodynamic significant 50% on the left side, 15% on the right side. The CT scan of cervical spine showed no acute abnormality. The patient recently had a chiropractic procedure. No chest pain or palpation at this time. PHYSICAL EXAMINATION: On exam, alert and oriented x3. Pulse 94, blood pressure 119/77, respiration 12, temperature 97.6, pulse ox 98% on room air. HEENT: Conjunctivae normal. Oral mucosa moist. NECK: No jugular venous distention. No carotid bruit. No lymph node enlargement. CARDIOVASCULAR: S1, S2 muffled. RESPIRATORY: Breath sounds diminished at the bases. No rhonchi, no crackles. ABDOMEN: Soft, nontender. LEGS: No edema. No swelling. NERVOUS SYSTEM: No focal deficits. LABS: CBC within normal limits. Sodium 135, potassium 4.2. Glucose 192. C-reactive protein is 14.5. Triglycerides 202, HDL is 37. ASSESSMENT: 1. Chest pain possible unstable angina. Rule out coronary artery disease. 2. Right-sided jaw pain and as well as facial numbness, rule out transient ischemic attack. 3. Hyponatremia. 4. Increased ALT, alkaline phosphatase. 5. Hypertension. 6. Hyperlipidemia. 7. Sleep apnea. 8. Hypothyroidism. 9. History of prediabetes. 10.History of sleep apnea. 11.History of hernia repair. 12.History of anxiety. RECOMMENDATIONS AND DISCUSSION: Recommend to continue current medications. Continue symptomatic treatment. Otherwise, I would also recommend a neurology evaluation for the numbness of the right side of the face. Otherwise cardiology evaluation possible stress test. Guarded prognosis. Further recommendations to follow. Dr. Tavarez will follow tomorrow. MMODL / IJN: [id number] /
[2020-03-24] MEDS: metFORMIN 500 MG TAB PO SCH (03:36)
[2020-03-24] MEDS: INSULIN ASPART (NovoLOG) 100 UNIT/ML VIAL SQ SCH ×2 (03:37→11:40)
[2020-03-24 06:01] LABS: Glucose,Whole Blood 216 mg/dL (75-99)
[2020-03-24] MEDS: TRIAMTERENE-HCTZ 37.5-25MG 1 EACH TAB PO SCH (06:07)
[2020-03-24] MEDS: ATORVASTATIN 40 MG TAB PO SCH (06:07)
[2020-03-24] MEDS: LOSARTAN 50 MG TAB PO SCH (06:07)
[2020-03-24] MEDS: ASPIRIN 81 MG PO SCH (06:07)
[2020-03-24] MEDS: LEVOTHYROXINE 75 MCG TAB PO SCH (06:07)
[2020-03-24] MEDS: amLODIPine 10 MG TAB PO SCH (06:07)
[2020-03-24] MEDS: PANTOPRAZOLE 40 MG TABLET PO SCH (06:07)
[2020-03-24] MEDS ORDERED: DOBUTamine DRIP for NUC MED 500 MG in DEXTROSE/WATER 1 250ML.BAG IV ONE (08:00)
[2020-03-24 08:01] VITALS: TEMP 97.5
--- NOTE | 2020-03-24 09:29 | P.PN ---
Subjective This is a pleasant 64-year-old male past medical history significant for hypertension, diabetes mellitus, dyslipidemia, GERD, sleep apnea and hypothyroidism. He denies prior history of CAD. He is seen and examined in no acute distress. He has had no further episodes of chest pain. Breathing has been stable. No dizziness or palpitations. Blood pressure 103/72 heart rate 114 afebrile maintaining oxygen saturation on room air. Currently maintained on amlodipine 10 mg daily, aspirin 81 mg daily, atorvastatin 40 mg daily, losartan 100 mg daily and triamterene and Keila/HCTZ 37.5/25 mg daily. Toprol has been held since admission and can be resumed on discharge. GENERAL: Well-appearing, well-nourished and in no acute distress. NECK: Supple without JVD or thyromegaly. LUNGS: Breath sounds clear to auscultation bilaterally. Respiration equal and unlabored. No wheezes, rales or rhonchi. HEART: Regular rate and rhythm without murmurs, rubs or gallops. S1 and S2 heard. EXTREMITIES: Normal range of motion, no edema. No clubbing or cyanosis. Peripheral pulses intact. ASSESSMENT Chest pain, an acute coronary event with femoral valve Hypertension Dyslipidemia Diabetes mellitus Obstructive sleep apnea Gastroesophageal reflux disease Obesity, BMI 38 Family history of premature coronary artery disease PLAN Proceed with dobutamine stress echocardiogram to assess her stress induced cardiac ischemia. Stress test is normal he may be discharged from a cardiac perspective to follow- up with Dr. Moraes in the office in 2 weeks. Continue lifestyle modifications in the form of diet exercise and lowering of LDL cholesterol. Nurse Practitioner note has been reviewed, I agree with a documented findings and plan of care. Patient was seen and examined. Objective - Vital Signs Vital signs: Vital Signs Temp 97.9 F 03/24/20 04:00 Pulse 93 03/24/20 04:00 Resp 18 03/24/20 04:00 BP 142/86 03/24/20 04:00 Pulse Ox 95 03/24/20 04:00 Intake & Output 03/23/20 03/24/20 03/24/20 18:59 06:59 18:59 Weight 115.5 kg Other: Voiding Method Toilet # Voids 3 1 - Labs CBC & Chem 7: 03/23/20 02:41 03/23/20 02:41 Labs: Abnormal Lab Results - Last 24 Hours (Table) 03/23/20 03/23/20 03/23/20 Range/Units 02:41 02:41 12:07 ESR 16 H (0-15) mm/hr POC Glucose (mg/dL) 222 H (75-99) mg/dL C-Reactive Protein 14.5 H (<10.0) mg/L 03/23/20 03/23/20 03/24/20 Range/Units 16:56 19:36 05:59 ESR (0-15) mm/hr POC Glucose (mg/dL) 183 H 223 H 216 H (75-99) mg/dL C-Reactive Protein (<10.0) mg/L
[2020-03-24 11:37] LABS: Glucose,Whole Blood 243 mg/dL (75-99)
--- NOTE | 2020-03-24 12:01 | ECHOF ---
Referral Reason:tia MEASUREMENTS -------- HEIGHT: 172.7 cm WEIGHT: 115.2 kg BP: 142/86 RVIDd: 3.2 cm (< 3.3) IVSd: 1.9 cm (0.6 - 1.1) LVIDd: 3.7 cm (3.9 - 5.3) LVPWd: 1.7 cm (0.6 - 1.1) IVSs: 2.2 cm LVIDs: 2.3 cm LVPWs: 2.2 cm LA Diam: 3.8 cm (2.7 - 3.8) Ao Diam: 2.9 cm (2.0 - 3.7) AV Cusp: 2.4 cm (1.5 - 2.6) MV EXCURSION: 15.568 mm (> 18.000) MV EF SLOPE: 65 mm/s (70 - 150) MV E Elan: 0.56 m/s MV DecT: 243 ms MV A Elan: 1.15 m/s MV E/A Ratio: 0.49 AV maxP.85 mmHg AV meanP.92 mmHg RAP: 5.00 mmHg RVSP: 18.58 mmHg FINDINGS -------- Resting tachycardia (HR>100bpm). This was a technically difficult study with suboptimal views. The left ventricular size is normal. There is severe concentric left ventricular hypertrophy. Lef t ventricular systolic function is hyperdynamic with an estimated EF of >70%. The right ventricle is normal in size. The left atrial size is normal. The right atrium was not well visualized. 5.0mg of Lumason was utilized for enhancement of images The aortic valve was not well visualized. LVOT obstruction with max gradient of 44 mm/Hg and mean g radient of 14 mm/Hg The mitral valve was not well visualized. Mild tricuspid regurgitation present. The pulmonic valve was not well visualized. The aortic root size is normal. IVC Not well visulized. There is no pericardial effusion. CONCLUSIONS -------- 1. Resting tachycardia (HR>100bpm). 2. This was a technically difficult study with suboptimal views. 3. The left ventricular size is normal. 4. Left ventricular systolic function is hyperdynamic with an estimated EF of >70%. 5. The right ventricle is normal in size. 6. The left atrial size is normal. 7. The right atrium was not well visualized. 8. 5.0mg of Lumason was utilized for enhancement of images 9. The aortic valve was not well visualized. 10. LVOT obstruction with max gradient of 44 mm/Hg and mean gradient of 14 mm/Hg 11. The mitral valve was not well visualized. 12. The pulmonic valve was not well visualized. 13. The aortic root size is normal. 14. IVC Not well visulized. 15. There is no pericardial effusion. NATIONAL BUSINESS DIRECTOR: LISA Mcfadden
--- NOTE | 2020-03-24 12:58 | ECHOS ---
STRESS ECHOCARDIOGRAM LUMASON: Vial INDICATIONS: Chest pressure MEDICATIONS: BASELINE HEART RATE: 120 BASELINE BLOOD PRESSURE: 151/92 MAXIMUM HEART RATE: 135 MAXIMUM BLOOD PRESSURE: 148/83 85% MPHR: 133 100% MPHR: 156 METS: MAXIMUM STAGE REACHED: TOTAL EXERCISE TIME: CLINICAL INFORMATION: Baseline EKG shows sinus rhythm, normal axis, normal intervals with poor R-wave progression. Patient was given intravenous dobutamine over a period of 8 minutes, achieving 88% of predicted maximal heart rate without chest pain. At peak dobutamine infusion there was 0.[address]-segment depression noted in the inferolateral leads with frequent PVCs. Baseline echo shows normal left ventricular size, wall motion and systolic function. Post dobutamine infusion there is normal hyperdynamic response of all segments of myocardium noted. CONCLUSION: 1. Nondiagnostic EKG changes with dobutamine infusion. 2. Negative dobutamine echo. SKYLER / MARTYN: [id number] /
[2020-03-24 13:11] VITALS: RESP 16
--- NOTE | 2020-03-24 14:16 | P.DS ---
Providers Date of admission: 03/24/20 08:58 Expected date of discharge: 03/24/20 Attending physician: Michael Tavarez MD Consults: 03/22/20 18:25 Consult Physician Urgent Consulting Provider: Osmany Rangel Consult Reason/Comments: Chest pain, CT rule out Do you want consulting provider notified?: Yes 03/23/20 13:58 Consult Physician Routine Consulting Provider: Tonia Morales Consult Reason/Comments: numbness/tingling r side of face Do you want consulting provider notified?: Yes Primary care physician: Dinorah Tavarez [facility] Course: Fins[place] Diagnoses: Chest pain, Poss USA, r/o CAD,stress test pending, in a patient with family history of CAD, premature Possible TIA, neurology following Distal left internal carotid artery with close to 50% stenosis with fusiform narrowing, further follow-up outpatient Hypertension Hyperlipidemia Obesity, BMI 38.7 Obstructive sleep apnea Gastroesophageal reflux disease Diabetes mellitus Anxiety Hospital course: This a 64-year-old gentleman admitted with chest pain, multiple other medical issues. Negative CT of C-spine and brain reported. Carotid Doppler reporting close to 50% stenosis with fusiform narrowing of the left internal carotid. Evaluated by cardiology and is undergoing a dobutamine stress echo today. Patient will be discharged home in stable condition with guarded prognosis pending stress test results, final DC recommendations and clearance from cardiology and neurology. The impression and plan of care has been dictated as directed. : I performed a history and examination of this patient, discussed the same with the dictator. I agree with the dictator's note ,documented as a scribe. Any additional findings or plans will be noted. Patient Condition at Discharge: Stable Plan - Discharge Summary Discharge Rx Participant: No New Discharge Prescriptions: Continue Aspirin 81 mg PO DAILY amLODIPine BESYLATE [Norvasc] 10 mg PO DAILY Losartan Potassium 100 mg PO DAILY Atorvastatin [Lipitor] 40 mg PO DAILY Triamterene/Hydrochlorothiazid [Triamterene-Hctz 37.5-25 mg Tb] 1 tab PO DAILY Metoprolol Succinate [Toprol Xl] 50 mg PO DAILY Levothyroxine Sodium [Synthroid] 75 mcg PO DAILY metFORMIN HCL ER [Glucophage Xr] 500 mg PO BID Discharge Medication List Aspirin 81 mg PO DAILY 10/02/14 [History] Atorvastatin [Lipitor] 40 mg PO DAILY 08/03/17 [History] Losartan Potassium 100 mg PO DAILY 08/03/17 [History] Triamterene/Hydrochlorothiazid [Triamterene-Hctz 37.5-25 mg Tb] 1 tab PO DAILY 08/03/17 [History] amLODIPine BESYLATE [Norvasc] 10 mg PO DAILY 08/03/17 [History] Levothyroxine Sodium [Synthroid] 75 mcg PO DAILY 01/27/18 [History] Metoprolol Succinate [Toprol Xl] 50 mg PO DAILY 01/27/18 [History] metFORMIN HCL ER [Glucophage Xr] 500 mg PO BID 03/22/20 [History] Follow up Appointment(s)/Referral(s): Jordan Gaming MD [STAFF PHYSICIAN] - 2 Weeks Dinorah Tavarez DO [Primary Care Provider] - 3 Days Laura Johnson MD [REFERRING] - 2 Weeks Activity/Diet/Wound Care/Special Instructions: Pending stress test, final DC recommendations and clearance from cardiology
[2020-03-24 14:25] VITALS: BP 102/72; PULSE 106
[2020-03-24] MEDS ORDERED: METOPROLOL SUCCINATE (ER) 50 MG TAB.ER.24H PO STA (17:09)
--- NOTE | 2020-03-25 00:05 | CONS ---
CONSULTATION DATE OF DICTATION: 03/24/2020 PRESENT ILLNESS: Thank you for allowing me to evaluate Siva Matias who is a 64-year-old right- handed white male who presented to [facility] on 03/22/2020 for evaluation of neck pain and chest heaviness. The patient states he has a long history of noting a "gravel" like sensation involving the right side of his neck, present at least over the past year where he states he will get clicking, snapping, and occasional pain. He states he has noted if he is in his car and looking to one side than the other he will develop pain at times when he looks to the right. As a result of these longstanding symptoms, the patient's suggested he go to a chiropractor and did so last (4 days ago). The patient states that while the chiropractor was working on him even when he was lying down, he became sweaty. The chiropractor manipulated his neck, the patient states he heard a "crack" and at that time developed pain extending from the back of his neck to behind his right ear. When he got up, the patient states he felt lightheaded, but denied a vertiginous sensation. He felt nauseated and was diaphoretic but did not vomit. In fact, the patient states the whole top of his shirt was "soaked" with sweat. When he got home and sat down on the chair, the lightheadedness resolved. He continues to detect a pressure-like sensation behind the right ear, which he did not have prior to that chiropractic manipulations. He called his primary care physician the next day who looked in his right ear and saw cerumen, but no evidence of infection. The next day the patient was outside doing yard work and developed chest heaviness, which prompted his presentation to the emergency room. At this time, the patient states the chest pressure has resolved, but if he flexes his neck forward and turns his head to the right, he will hear clicking. He denies radiation of pain from the neck into the upper extremities. With the above symptoms, the patient had no associated vertigo, diplopia, dysarthria, difficulty chewing/swallowing or focal weakness/numbness in the extremities. He denies previous history of stroke or seizure. He was taking aspirin 81 mg q. day at the time of these symptoms. He also denies worsening of neck pain with coughing/sneezing/straining, denies Lhermitte's phenomenon, urine/stool incontinence or numbness in the genital structures/rectal region. The patient reports long-standing right hand numbness, which has been present since the , which developed following a fall onto his outstretched right hand, primarily affecting the first through third digits with lesser involvement of the fourth digit and no involvement of the right fifth finger or proximal to the right wrist. The patient states he has also previously dislocated his right shoulder. ALLERGIES: No known drug allergies. HOME MEDICATIONS: Metformin, amlodipine, Maxzide, Toprol-XL, losartan, Synthroid, Lipitor, and aspirin 81 mg q. day. PAST MEDICAL HISTORY: Diabetes mellitus x1 year, hypertension, hyperlipidemia, hypothyroidism, GERD, obesity, obstructive sleep apnea, and dislocated right shoulder. PAST SURGICAL HISTORY: Hernia repair and testicle surgery. SOCIAL HISTORY: The patient denied tobacco, alcohol or drug use. He is with 2 children. Lives in a house with his . He has not been using any assistive devices to ambulate at home. FAMILY HISTORY: Patient's parents are . Father had peptic ulcer disease and heart disease. Mother had throat cancer, but there is no family history of epilepsy, Parkinson's, or other neurologic disease. REVIEW OF SYSTEMS: Fourteen systems are reviewed and no additional points are identified. The review of systems is documented in the history and physical. PHYSICAL EXAMINATION: Upon my arrival in the patient's room in the observation unit, he was lying in bed, was able to sit up at the bedside during the interview. He was receptive to the examiner and accurate/tangential historian and appears of stated age. He is overweight. VITAL SIGNS: Blood pressure is 102/72 with a pulse of 106, respiratory rate 16, temperature 97.5, weight is 115 kg on a 5 foot 8 inch frame. SKIN AND EXTREMITIES: Arthritic changes are noted in the hands. HEAD AND NECK: No signs of trauma. Neck is supple without meningeal signs. Arteries are nontender and without bruits. The patient does have crepitus when he turns his head to the right. HEART: Regular rate and rhythm. HIGHER CORTICAL FUNCTION: MENTAL STATUS: Patient was alert, oriented to self. He knew he was in "[facility]". He knew the city, year, month, day of week and could name the current president. He was able to name, repeat and read. There was no right or left disorientation, finger agnosia, extinction to double simultaneous stimulation or dysarthria. CRANIAL NERVES II THROUGH XII: Pupils are equal and reactive to light symmetrically. No afferent pupillary defect. Visual lott are intact to confrontation. III, IV, : No ptosis. Extraocular movements full. No nystagmus. V: Pinprick and light touch intact in all 3 divisions. Motor 5 intact. VII: No facial asymmetry or weakness. Acuity intact to finger rub. IX, X: Palate gabo in the midline. XI: Distribution strength intact. XII: Tongue protruded midline without fasciculation or atrophy. Motor examination is there is no pronator drift. Normal fasciculation or atrophy. MOTOR EXAMINATION: There is no pronator drift. Normal bulk and tone is noted in all major muscle groups with no involuntary movements noted. Strength is 5/5 throughout. SENSORY: Patient reports diminution to pinprick and light touch involving the right hand in the median nerve distribution as compared to the left. The remainder of the upper and lower extremities were intact and symmetric. REFLEXES: Right side listed first. Biceps 2,2; brachioradialis 2, 2; triceps 2+, 2+, patella 2, 2, ankle 2, 2. Plantar response is flexor bilaterally. Eagle's is absent. The patient has pes planus bilaterally. COORDINATION: Koxpys-[id number], atxb-ta-qbis movements are intact. Rapid alternating movements are symmetric with finger and foot tapping. GAIT AND STATION: Patient was able to rise without difficulty. He ambulated with a mildly broad-based gait secondary to body habitus with equal arm swing and was able to heel and toe walk. With tandem gait, the patient would occasionally sidestep, but not in one certain direction. Romberg is negative. DIAGNOSTIC TESTING: The patient had a CT scan of brain and cervical spine completed both read as negative. Carotid ultrasound demonstrated close to 50% stenosis of left internal carotid artery and less than 15% stenosis on the right with antegrade flow in vertebral arteries. Chest x-ray revealed no acute pathology. Echocardiogram from 03/24 demonstrated ejection fraction of greater than 70%. Dobutamine stress echo was negative. LAB WORK: Lab work demonstrates a white blood count of 9.1 with hemoglobin of 14.3, platelet count 246. Sodium 135, potassium 4.2, BUN 20 with a creatinine of 0.82. INR 1.0. Calcium 9.2. ALT 58, AST 33. Troponin negative. Cholesterol 170 with an LDL of 93, HDL of 37, triglycerides 202. COVID negative. IMPRESSION: 1. Longstanding neck pain/crepitus present for over 1 year without motor/reflex changes on examination to suggest spinal cord/nerve root dysfunction, likely musculoskeletal in nature. With chiropractic manipulation last , the patient had pain radiate to the right posterior head region, likely secondary to upper cervical root irritation. 2. Following the chiropractic manipulation, the patient was lightheaded, nauseated and diaphoretic, likely representing a near syncopal episode, there is no evidence to suggest transient ischemic attack. 3. Long-standing right hand numbness in the median nerve distribution, status post fall onto his outstretched right hand. 4. Chest heaviness, deferred to your expertise. 5. Medical problems including hypertension, diabetes mellitus, hyperlipidemia, hypothyroidism, gastroesophageal reflux disease, obesity, obstructive sleep apnea, and history of dislocated right shoulder. RECOMMENDATIONS: 1. I discussed my impression and plan with the patient and he expressed understanding. 2. CT of the brain and cervical spine was unrevealing and carotid ultrasound demonstrated close to 50% stenosis of left internal carotid artery (asymptomatic) and less than 15% stenosis on the right with antegrade flow in the vertebral arteries. 3. Suggest an outpatient EMG of the right upper extremity and outpatient carotid monitoring. 4. Risk factor modification, would recommend the patient pursue weight loss and regular exercise program to tolerance. 5. Would avoid further chiropractic manipulations for now. 6. The patient will continue aspirin/atorvastatin. 7. Please feel free to contact me if there are further questions from a neurologic standpoint. Thank you for allowing me to participate in the care of your patient. MMODL / IJN: [id number] / MTDD
== END 2020-03-24 17:28 | disposition home or self-care (01) | DRG 313 ==
LOC: EC 16:17 → 1SOBS 18:17 → OBSVTOIN 03-24 08:58
PROVIDERS: ADMIT Family Medicine; ATTEND Family Medicine
PROC: 4A12XM4 Monitoring of Cardiac Stress, External Approach (ICD-10-PCS; principal; 2020-03-24)
PROC: 3E073KZ Introduction of Other Diagnostic Substance into Coronary Artery, Percutaneous Approach (ICD-10-PCS; principal; 2020-03-24)
DX: R07.89 Other chest pain (principal); E87.1 Hypo-osmolality and hyponatremia; E11.9 Type 2 diabetes mellitus without complications; Z11.59 Encounter for screening for other viral diseases; M54.2 Cervicalgia; I65.22 Occlusion and stenosis of left carotid artery; G47.33 Obstructive sleep apnea (adult) (pediatric); K21.9 Gastro-esophageal reflux disease without esophagitis; I10 Essential (primary) hypertension; E78.5 Hyperlipidemia, unspecified; E03.9 Hypothyroidism, unspecified; E78.00 Pure hypercholesterolemia, unspecified; E66.9 Obesity, unspecified; Z68.38 Body mass index [BMI] 38.0-38.9, adult; F41.9 Anxiety disorder, unspecified; Z79.82 Long term (current) use of aspirin; Z79.890 Hormone replacement therapy; Z79.84 Long term (current) use of oral hypoglycemic drugs; Z79.899 Other long term (current) drug therapy; Z98.890 Other specified postprocedural states; Z82.49 Family history of ischemic heart disease and other diseases of the circulatory system; Z80.8 Family history of malignant neoplasm of other organs or systems; Z83.79 Family history of other diseases of the digestive system
CPT/HCPCS: 36415; 70450; 71046; 72125; 80053; 80061; 83735; 84484; 85025; 85610; 85652; 85730; 86140; 93005; 93306; 93351; 93880; 99285

== ENCOUNTER 2025-02-20 07:15 | Day surgery (SDC) | payer MEDICARE ==
[2025-02-19 11:46] VITALS: BMI 34.4
[2025-02-20] MEDS: IV FLUID CONTINUATION 1,000 ML IV ONE (07:33)
[2025-02-20] MEDS: LACTATED RINGERS 1,000 ML IV SCH (07:51)
[2025-02-20 07:55] VITALS: TEMP 97
[2025-02-20 07:58] LABS: Glucose,Whole Blood 140 mg/dL (70-110)
[2025-02-20] MEDS ORDERED: PROPOFOL 10 MG/ML 20 ML VIAL IV ONE (08:31)
--- NOTE | 2025-02-20 08:38 | P.GSHP ---
History of Present Illness H&P Date: 02/20/25 CHIEF COMPLAINT: Colon screen HISTORY OF PRESENT ILLNESS: The patient is a 69-year-old male who presents for colon screen. Lower endoscopy was offered for further evaluation and management. PAST MEDICAL HISTORY: Please see list. PAST SURGICAL HISTORY: Please see list. MEDICATIONS: Please see list. ALLERGIES: Please see list. SOCIAL HISTORY: No illicit drug use FAMILY HISTORY: No reports of Crohn disease or ulcerative colitis. REVIEW OF ORGAN SYSTEMS: CONSTITUTIONAL: No reports of fevers or chills. PHYSICAL EXAM: VITAL SIGNS: Stable GENERAL: Well-developed pleasant in no acute distress. HEENT: No scleral icterus. Extraocular movements grossly intact. Moist buccal mucosa. NECK: Supple without lymphadenopathy. CHEST: Unlabored respirations. Equal bilateral excursions. CARDIOVASCULAR: Regular rate and rhythm. Distal 2+ pulses. ABDOMEN: Soft, nontender, nondistended. MUSCULOSKELETAL: No clubbing, cyanosis, or edema. ASSESSMENT: 1. Colon screen. PLAN: 1. Recommend proceeding with a lower endoscopy Past Medical History Past Medical History: Chest Pain / Angina, Diabetes Mellitus, Hyperlipidemia, Hypertension, Prostate Disorder, Sleep Apnea/CPAP/BIPAP, Thyroid Disorder Additional Past Medical History / Comment(s): kidney stones, enlarged testicles, enlarged prostate, no cpap History of Any Multi-Drug Resistant Organisms: None Reported Past Surgical History: Hernia Repair Additional Past Surgical History / Comment(s): surgery for umbilical and inguinal hernia,5th digit left hand surgery, surgery for "swollen testicle" Past Anesthesia/Blood Transfusion Reactions: No Reported Reaction Smoking Status: Never smoker - Past Family History Mother Family Medical History: Cancer Additional Family Medical History / Comment(s): "throat cancer" Father Family Medical History: Myocardial Infarction ([place]) Additional Family Medical History / Comment(s): age 66 " of massive heart attack" Brother(s) Family Medical History: Myocardial Infarction ([place]) Sister(s) Family Medical History: Cancer, Myocardial Infarction ([place]) Additional Family Medical History / Comment(s): "throat cancer" Medications and Allergies Home Medications Medication Instructions Recorded Confirmed Type Aspirin 81 mg PO DAILY 10/02/14 02/20/25 History Atorvastatin [Lipitor] 40 mg PO DAILY 08/03/17 02/20/25 History Losartan Potassium 100 mg PO QAM 08/03/17 02/20/25 History amLODIPine BESYLATE [Norvasc] 10 mg PO DAILY@1500 08/03/17 02/20/25 History Levothyroxine Sodium [Synthroid] 75 mcg PO QAM 01/27/18 02/20/25 History Metoprolol Succinate [Toprol Xl] 50 mg PO DAILY@1500 01/27/18 02/20/25 History metFORMIN HCL ER [Glucophage XR] 500 mg PO DAILY 03/22/20 02/20/25 History Allergies Allergy/AdvReac Type Severity Reaction Status Date / Time No Known Allergies Allergy Verified 02/20/25 07:50 Surgical - Exam Vital Signs Temp Pulse Resp BP Pulse Ox 97.0 F L 104 H 18 173/98 97 02/20/25 07:33 02/20/25 07:33 02/20/25 07:33 02/20/25 07:33 02/20/25 07:33 Results - Labs Abnormal Lab Results - Last 24 Hours (Table) 02/20/25 Range/Units 07:49 POC Glucose (mg/dL) 140 H (70-110) mg/dL
[2025-02-20 09:08] VITALS: RESP 16
[2025-02-20 09:27] VITALS: BP 146/88; PULSE 82
--- NOTE | 2025-02-20 09:43 | P.PCN ---
Date of Procedure: 02/20/25 Description of Procedure: PREOPERATIVE DIAGNOSIS: Colonoscopy screening POSTOPERATIVE DIAGNOSIS: Tubular adenoma hepatic flexure Tubular adenoma rectum Sigmoid diverticulosis OPERATION: Colonoscopy to the ileocecal valve and appendiceal orifice, cecum Colonoscopy with hot snare polypectomy SURGEON: Tammy Jordan MD. ANESTHESIA: MAC. INDICATIONS: The patient is an 69-year-old male who presents for colon screening. Last colonoscopy over 10 years ago. Benefits and risks were described and informed consent was obtained. DESCRIPTION OF PROCEDURE: The patient had undergone Suprep. The patient had been brought into the operating room and laid in the left lateral decubitus position. After adequate intravenous sedation, the rectum was examined with 2% lidocaine jelly. The prostate was unremarkable. No external hemorrhoids were encountered. The rectal tone was within normal limits. No lesions were palpated in the rectal vault. An Olympus colonoscope was advanced until the cecum, ileocecal valve and appendiceal orifice were clearly viewed. The prep was good. Sigmoid diverticulosis was encountered. Colonic polyps were found and removed. No evidence of focal colitis was found. Retroflexion of the scope demonstrated grade 2 internal hemorrhoids without active bleeding or inflammation. The colon was desufflated. The patient had tolerated the procedure well. Withdrawal time was over 6 minutes. FINDINGS: Aronchick preparation quality scale 2 (1-5) Internal hemorrhoids, grade 1 External hemorrhoids, grade 2. No arteriovenous malformations. Sigmoid diverticulosis Removal of 3 polyps: - Snare polypectomy x 2, rectum, 8 - 10 mm tubulovillous adenoma - Snare polypectomy transverse colon, 8 mm flat villous adenoma No focal colitis. RECOMMENDATIONS: Repeat colonoscopy in 2 years, 2026 Plan - Discharge Summary Discharge Rx Participant: No New Discharge Prescriptions: Continue Aspirin 81 mg PO DAILY amLODIPine BESYLATE [Norvasc] 10 mg PO DAILY@1500 Losartan Potassium 100 mg PO QAM Atorvastatin [Lipitor] 40 mg PO DAILY Metoprolol Succinate [Toprol Xl] 50 mg PO DAILY@1500 Levothyroxine Sodium [Synthroid] 75 mcg PO QAM metFORMIN HCL ER [Glucophage XR] 500 mg PO DAILY Discharge Medication List Aspirin 81 mg PO DAILY 10/02/14 [History] Atorvastatin [Lipitor] 40 mg PO DAILY 08/03/17 [History] Losartan Potassium 100 mg PO QAM 08/03/17 [History] amLODIPine BESYLATE [Norvasc] 10 mg PO DAILY@1500 08/03/17 [History] Levothyroxine Sodium [Synthroid] 75 mcg PO QAM 01/27/18 [History] Metoprolol Succinate [Toprol Xl] 50 mg PO DAILY@1500 01/27/18 [History] metFORMIN HCL ER [Glucophage XR] 500 mg PO DAILY 03/22/20 [History] Follow up Appointment(s)/Referral(s): Tammy Jordan MD [STAFF PHYSICIAN] - 03/12/25 1:00 pm Patient Instructions/Handouts: *Surgery [facility] - (Anesthesia) Discharge Instructions Outpatient Surgery, Diverticulosis (DC), Colorectal Polyps (GEN), Diverticulosis Diet (GEN) Activity/Diet/Wound Care/Special Instructions: Repeat colonoscopy in 2 years, 2026 Discharge Disposition: HOME SELF-CARE
== END 2025-02-20 10:15 | disposition home or self-care (01) ==
LOC: ORWHC2ENDO 07:15
PROVIDERS: ATTEND Surgery Plastic and Reconstructive Surgery
DX: Z12.11 Encounter for screening for malignant neoplasm of colon (principal); D12.3 Benign neoplasm of transverse colon; D12.8 Benign neoplasm of rectum; K57.30 Diverticulosis of large intestine without perforation or abscess without bleeding; K64.8 Other hemorrhoids; K64.4 Residual hemorrhoidal skin tags; K64.1 Second degree hemorrhoids; Z79.82 Long term (current) use of aspirin; Z79.84 Long term (current) use of oral hypoglycemic drugs; E11.9 Type 2 diabetes mellitus without complications; E78.5 Hyperlipidemia, unspecified; G47.30 Sleep apnea, unspecified; I10 Essential (primary) hypertension; Z79.890 Hormone replacement therapy
CPT/HCPCS: 45385; J2704; 88305

== ENCOUNTER → 2025-02-22 | Outpatient (CLI) | payer MEDICARE ==
--- NOTE | 2025-02-22 08:47 | US ---
EXAMINATION TYPE: US gallbladder DATE OF EXAM: 02/22/2025 COMPARISON: CT abdomen and pelvis 11/21/2024, 01/27/2018 CLINICAL INDICATION: Male, 69 years old with history of R10.11 RIGHT UPPER QUADRANT PAIN; RUQ pain TECHNIQUE: Grayscale and color Doppler imaging of the right upper quadrant was performed. FINDINGS: EXAM MEASUREMENTS: Liver Length: 21.1 cm Gallbladder Wall: 0.2 cm CBD: 0.4 cm Right Kidney: 12.8 x 5.5 x 4.7 cm OIL SEPARATOR NOTES:*Limitations due to patient's body habitus and overlying bowel gas Pancreas: Obscured by bowel gas Liver: enlarged Gallbladder: stones Evidence for sonographic Medellin's sign: no CBD: appears wnl Right Kidney: cystic cluster mid = 1.6 x 1.2 x 1.5cm Pancreas is obscured by overlying bowel gas. The liver is enlarged without focal lesion or surface no dularity. Multiple gallstones identified. No wall thickening or surrounding fluid. Negative sonograph ic Medellin's sign. Common bile duct is within normal limits. Small cyst cluster measuring up to 1.6 cm . No follow up recommended. IMPRESSION: 1. No ultrasound evidence for acute process. 2. Cholelithiasis without ultrasound evidence for acute cholecystitis. 3. Hepatomegaly. [facility], , 02/22/2025 8:44 AM
== END | disposition home or self-care (01) ==
LOC: RADUSWWP 08:06
PROVIDERS: ATTEND Surgery Plastic and Reconstructive Surgery
DX: K80.20 Calculus of gallbladder without cholecystitis without obstruction (principal); R16.0 Hepatomegaly, not elsewhere classified
CPT/HCPCS: 76705

== ENCOUNTER → 2025-04-05 | Outpatient (CLI) | payer MEDICARE ==
[2025-04-06 01:51] LABS: Appearance,Urine Clear (Clear); Bilirubin,Urine Negative (Negative); Blood,Urine Small (Negative); Color,Urine Yellow (Yellow); Ketones,Urine Negative (Negative); Nitrite,Urine Negative (Negative); Specific Gravity,Urine 1.009 (1.001-1.030); Urobilinogen,Urine 0.2 E.U./DL
[2025-04-06 01:55] LABS: Basophils # (A) 0.06 X 10*3/uL (0.00-0.10); Basophils % (A) 0.7 %; Eosinophils # (A) 0.09 X 10*3/uL (0.04-0.35); HCT 43.9 % (39.6-50.0); HGB 14.5 g/dL (13.0-17.0); Lymphocytes # (A) 2.21 X 10*3/uL (0.90-5.00); Lymphocytes % (A) 24.2 %; MCH 30.4 pg (27.0-32.0); Mean Platelet Volume 9.8 FL (9.5-12.2); Monocytes # (A) 0.47 X 10*3/uL (0.20-1.00); Monocytes % (A) 5.1 %; NRBC Per 100 WBC 0 X 10*3/uL (0.00-0.01); Neutrophils # (A) 6.24 X 10*3/uL (1.80-7.70); Neutrophils % (A) 68.2 %; Platelet Count 294 X 10*3/uL (140-440); RBC 4.77 X 10*6/uL (4.40-5.60); RDW 13.2 % (11.5-14.5); WBC 9.14 X 10*3/uL (4.50-10.00)
[2025-04-06 01:57] LABS: Bacteria,Urine None Seen (None Seen)
[2025-04-06 02:39] LABS: BUN/Creat Ratio 17.67 Ratio (12.00-20.00); Blood Urea Nitrogen 15.9 mg/dL (9.0-27.0); Calcium 9.2 mg/dL (8.7-10.3); Carbon Dioxide 24.4 mmol/L (21.6-31.8); Chloride 102 mmol/L (96-109); Glucose 109 mg/dL (70-110); Potassium 4.2 mmol/L (3.5-5.5); Sodium 140 mmol/L (135-145)
== END | disposition home or self-care (01) ==
LOC: LABPAT 16:19
PROVIDERS: ATTEND Urology
DX: Z01.818 Encounter for other preprocedural examination (principal); N20.0 Calculus of kidney; Z01.812 Encounter for preprocedural laboratory examination
CPT/HCPCS: 80048; 81001; 85025; 87086

== ENCOUNTER 2025-04-09 10:31 | Day surgery (SDC) | payer MEDICARE ==
--- NOTE | 2025-04-04 12:15 | P.HPIHPCON ---
History of Present Illness H&P Date: 04/04/25 Chief Complaint: Left renal stone This is a 69-year-old male with history of a 1.3 cm left-sided lower pole renal stone. He is symptomatic from his stone. Option of left-sided ureteroscopy with holmium laser versus ESWL was discussed. Risk and benefit of each approach were discussed. He agreed to proceed with a left-sided ureteroscopy with holmium laser. Aware of the risk which include but not limited to bleeding, infection, injury to the ureter Consent for Procedure: I have explained the operation/procedure to the patient, including the risks, benefits, side effects, alternative therapies (including not receiving the proposed treatment or service), the likelihood of the patient achieving his/her goals, and potential recuperation problems for the procedure/sedation/analgesia, as well as any blood products, if indicated. I also explained to the patient the risks, benefits and side effects of the alternatives, as well as the risks related to not receiving the proposed procedure, care, treatment, or services. Past Medical History Past Medical History: Chest Pain / Angina, Hyperlipidemia, Hypertension, Sleep Apnea/CPAP/BIPAP, Thyroid Disorder Additional Past Medical History / Comment(s): pt states prediabetic, is awaiting machine for sleep apnea History of Any Multi-Drug Resistant Organisms: None Reported Past Surgical History: Hernia Repair Additional Past Surgical History / Comment(s): surgery for umbilical and inguinal hernia, left pinky surgery, surgery for "swollen testicle" Past Anesthesia/Blood Transfusion Reactions: No Reported Reaction Smoking Status: Never smoker - Past Family History Mother Family Medical History: Cancer Additional Family Medical History / Comment(s): "throat cancer" Father Family Medical History: Myocardial Infarction ([place]) Additional Family Medical History / Comment(s): age 66 " of massive heart attack" Brother(s) Family Medical History: Myocardial Infarction ([place]) Sister(s) Family Medical History: Cancer, Myocardial Infarction ([place]) Additional Family Medical History / Comment(s): "throat cancer" Medications and Allergies Home Medications Medication Instructions Recorded Confirmed Type Aspirin 81 mg PO DAILY 10/02/14 02/20/25 History Atorvastatin [Lipitor] 40 mg PO DAILY 08/03/17 02/20/25 History Losartan Potassium 100 mg PO QAM 08/03/17 02/20/25 History amLODIPine BESYLATE [Norvasc] 10 mg PO DAILY@1500 08/03/17 02/20/25 History Levothyroxine Sodium [Synthroid] 75 mcg PO QAM 01/27/18 02/20/25 History Metoprolol Succinate [Toprol Xl] 50 mg PO DAILY@1500 01/27/18 02/20/25 History metFORMIN HCL ER [Glucophage XR] 500 mg PO DAILY 03/22/20 02/20/25 History Allergies Allergy/AdvReac Type Severity Reaction Status Date / Time No Known Allergies Allergy Verified 02/20/25 07:50 Surgical - Exam - General no distress, moderate pain - Eyes normal ocular movement, no pale - ENT normal nares, normal mucosa - Respiratory normal expansion, normal respiratory effort - Abdomen Abdomen: soft, non tender, no distended Assessment and Plan Assessment: OR for left-sided ureteroscopy, holmium laser lithotripsy, stone basketing and stent insertion
[2025-04-08 13:29] VITALS: BMI 32.6
[~2025-04-09 10:31] MED LIST changes: -ALPRAZolam 0.25 MG TAB PO PRN; -ALPRAZolam 0.5 MG TAB PO PRN; -ASPIRIN 325 MG TAB PO STA; -ATORVASTATIN 80 MG TAB PO STA; +HYDROmorphone 0.5 MG/0.5 ML SYRINGE IVP PRN; +LIDOCAINE 1% (10MG/ML) FOR IV START INTRADERMA PRN; +MIDAZOLAM 2 MG/2 ML VIAL IV PRN; -NITROGLYCERIN SL TABS 0.4 MG TAB SUBLINGUAL PRN; -SODIUM CHLORIDE 0.9% 1,000 ML in EMPTY BAG 1 BAG IV ONE; +fentaNYL (PF) 50 MCG/ML 2 ML AMP IVP PRN
--- NOTE | 2025-04-09 10:53 | XR ---
EXAMINATION TYPE: XR KUB DATE OF EXAM: 04/09/2025 10:46 AM COMPARISON: 01/27/2018 CLINICAL INDICATION: Male, 69 years old with history of KIDNEY STONE, TECHNIQUE: XR KUB view(s) obtained. FINDINGS: There is a normal bowel gas pattern. Psoas margins are normal. No organomegaly evident. There is a 1.6 x 1.1 cm calcification mid left kidney. Faint calcification is not excluded from the r ight kidney and may measure 1.2 and 0.3 cm in size. Scoliosis is present. There is advanced degenerative hip changes at the left hip. Moderately advanced degenerative changes at the right hip. IMPRESSION: 1. Large left renal stone. 2. Additional smaller right renal stones may be present. [facility], , 04/09/2025 10:50 AM
[2025-04-09] MEDS: IV FLUID CONTINUATION 1,000 ML IV ONE (11:10)
[2025-04-09 11:32] LABS: Glucose,Whole Blood 150 mg/dL (70-110)
[2025-04-09] MEDS: DEXAMETHASONE SOD PHOSPHATE 4 MG/ML 1 ML VIAL IV ONE (11:34)
[2025-04-09] MEDS: ONDANSETRON 4 MG/2 ML VIAL IVP ONE (11:34)
[2025-04-09] MEDS: LACTATED RINGERS 1,000 ML IV SCH (11:34)
[2025-04-09] MEDS ORDERED: LIDOCAINE 1% INJ 10MG/ML (20 ML MDV) ONE (13:14)
[2025-04-09] MEDS ORDERED: PHENYLEPHRINE-0.9% NACL SYG 1,000 MCG/10 ML SYRINGE ONE (13:14)
[2025-04-09] MEDS ORDERED: SUCCINYLCHOLINE CHLORIDE 200 MG/10 ML VIAL IV ONE (13:14)
[2025-04-09] MEDS ORDERED: HYDROmorphone (PF) 1 MG/ML ONE (13:14)
[2025-04-09] MEDS ORDERED: PROPOFOL 10 MG/ML 20 ML VIAL IV ONE (13:14)
[2025-04-09] MEDS ORDERED: ROCURONIUM 10 MG/ML (5 ML VIAL) IV ONE (13:14)
[2025-04-09] MEDS ORDERED: fentaNYL (PF) 50 MCG/ML 2 ML AMP ONE (13:14)
[2025-04-09] MEDS ORDERED: GLYCOPYRROLATE 0.2 MG/ML 2 ML VIAL ONE (13:14)
[2025-04-09] MEDS ORDERED: NEOSTIGMINE 1 MG/ML 10 ML VIAL ONE (13:14)
[2025-04-09] MEDS: LACTATED RINGERS 1,000 ML IV ONE (14:39)
[2025-04-09 15:06] VITALS: TEMP 97
--- NOTE | 2025-04-09 15:08 | P.OP ---
Date of Procedure: 04/09/25 Preoperative Diagnosis: Left renal stone Postoperative Diagnosis: Left renal stone, urethral stricture Procedure(s) Performed: Cystoscopy, urethral dilation, left ureteroscopy, holmium laser lithotripsy, stone basketing and stent insertion Implants: 6 [facility] by 26 cm stent left on a string and taped to the patient catheter Anesthesia: DANIELLE Surgeon: Omer Call Estimated Blood Loss (ml): 5 Pathology: other (Left renal stone) Condition: stable Disposition: PACU Indications for Procedure: This is a 69-year-old male with history of a 1.3 cm left-sided lower pole renal stone. He is symptomatic from his stone. Option of left-sided ureteroscopy with holmium laser versus ESWL was discussed. Risk and benefit of each approach were discussed. He agreed to proceed with a left-sided ureteroscopy with holmium laser. Aware of the risk which include but not limited to bleeding, infection, injury to the ureter Operative Findings: [address] [facility] bulbar urethral stricture that was dilated, large left-sided upper pole stone Description of Procedure: Patient brought to the operating room and anesthesia was induced. He was prepped and draped initial fashion placed in a dorsolithotomy position. Cystoscopy fitted through the [address] sheath was inserted per urethra, at this point a bulbar stricture was encountered and measured [address] in diameter and was fairly short and distance measuring approximately half a centimeter, at this point a sensor wire was advanced through the scope and the scope was withdrawn with the wire in place. Next using the S shaped dilators the stricture was dilated starting with 8 [address] and going all the way up to 20. At this time a cystoscope fitted with a [address] sheath was inserted per urethra and advanced into the bladder, the bladder was moderately trabeculated, prostate was enlarged, but partially occlusive. Attention was then carried to the left ureteral orifice which was intubated with a sensor wire, the wire was advanced under fluoroscopy into the kidney. Next an [address] access sheath was passed over the wire and into the proximal ureter. The flexible ureteroscope was inserted through the access sheath, renoscopy was performed showed a large stone in the upper pole. Using the holmium laser the stone was fragmented, stone fragments were removed using the stone basket. Repeat renoscopy showed no sizable fragments or injury to the kidney. Of note the stone was radiopaque, and at the end of the case repeat fluoroscopy was performed which showed no radiopaque densities. Pullback ureteroscopy was performed showed no injury to the ureter or any ureteral stone, as ureteroscope was withdrawn a sensor wire was advanced through. Next a ureteral stent was passed over the wire under fluoroscopy, the proximal curl was visualized on fluoroscopy and the distal curl was visualized using the cystoscope. Next the [address] catheter was placed with the return of blood-tinged urine, the catheter was irrigated to clear. The string of the stent was secured to the catheter. The patient was awakened from anesthesia and taken to recovery in stable condition, he will follow-up in 1 week for catheter and stent removal
--- NOTE | 2025-04-09 15:42 | FL ---
Fluoroscopy INDICATION: Pain FINDINGS: Fluoroscopy time: 34 seconds. Total dose area product (DAP) in uGy*m?, mGy*cm? (or similar): [id number] Images obtained: 2. Images document the procedure. IMPRESSION: 1. Documentation of fluoroscopy. [facility], , 04/09/2025 3:40 PM
[2025-04-09 16:02] VITALS: RESP 16
[2025-04-09] MEDS: KETOROLAC 15 MG/ML 1 ML VIAL IVP STA (16:06)
[2025-04-09 16:40] VITALS: BP 153/87; PULSE 99
== END 2025-04-09 16:55 | disposition home or self-care (01) ==
LOC: OR 10:31
PROVIDERS: ATTEND Urology
DX: N20.0 Calculus of kidney (principal); N35.919 Unspecified urethral stricture, male, unspecified site; I10 Essential (primary) hypertension; E78.5 Hyperlipidemia, unspecified; E07.9 Disorder of thyroid, unspecified; E11.9 Type 2 diabetes mellitus without complications; G47.33 Obstructive sleep apnea (adult) (pediatric); Z98.890 Other specified postprocedural states; Z82.49 Family history of ischemic heart disease and other diseases of the circulatory system; Z79.890 Hormone replacement therapy; Z79.84 Long term (current) use of oral hypoglycemic drugs; Z79.82 Long term (current) use of aspirin; Z79.02 Long term (current) use of antithrombotics/antiplatelets; Z79.899 Other long term (current) drug therapy
CPT/HCPCS: 82365; 74018; 52356; C2625; C1894; C1758; C1769 ×3; J0330; J1100; J2710; J0690; J2405; J2003; J3010; J1171; J1885; J2704; J2371; J1596